=== PATIENT | female | born 1935 | race Caucasian/White ===

== ENCOUNTER → 2016-04-06 | Day surgery (SDC) | payer OTHER, MEDICARE ==
--- NOTE | 2016-04-09 10:21 | OP ---
DATE OF OPERATION: 04/06/2016 PREOPERATIVE DIAGNOSIS: Right breast mass 8 o'clock 2 cm from the nipple. POSTOPERATIVE DIAGNOSIS: Right breast mass 8 o'clock 2 cm from the nipple. PROCEDURE: Right ultrasound-guided core biopsy with clip placement. ANESTHESIA: Local. ATTENDING SURGEON: Janice Lockwood MD ESTIMATED BLOOD LOSS: Minimal. COMPLICATIONS: None. DESCRIPTION OF PROCEDURE: The patient was made aware of the risks and benefits of the procedure. She was placed in a supine position. Under sterile conditions with 1% lidocaine for local anesthesia, a small dian was made in the skin. Using a 10 gauge via lateral approach under ultrasound guidance, several cores were obtained and submitted to Pathology. Likewise, under ultrasound guidance, a U-shaped clip was placed into the biopsy region. Well tolerated by patient. Sterile dressing was applied. We will contact the patient with the results. JANICE COOL M.D. [id number] MTDD
--- NOTE | 2016-04-09 15:22 | PATH ---
Surgical Pathology Report Patient Name: BRUNO MARC [facility]. Rec. #: [id number] /Age/Gender: 1935 (Age: 81) / F Account: [id number] Location: [facility] Taken: 04/06/2016 Received: 04/06/2016 Reported: 04/09/2016 Physicians: Janice Cervantes M.D. Specimen(s) Received RIGHT BREAST 8N2 CORE BIOPSY Clinical History Nonpalpable lesion, suspicious Final Diagnosis BREAST, RIGHT, 8:00, 2 CM FN, CORE BIOPSY: BENIGN BREAST TISSUE SHOWING FIBROADENOMATOID CHANGE AND STROMAL FIBROSIS. Electronically Signed Diana Lemus M.D. Gross Description Received in formalin, labeled "right breast 8:00, 2 cmfn," is a 1.0 x 0.5 x 0.2 cm aggregate of gusman fragments of fibroadipose tissue admixed with blood clot. The formalin is filtered and the specimen is entirely submitted in one cassette. Time to formalin fixation: Less than one minute Total formalin fixation time: Approximately 8 hours. /04/06/2016 [facility]04/06/2016
== END | disposition home or self-care (01) ==
LOC: FRADUS-SUR 13:10
PROVIDERS: ATTEND Surgery Surgical Oncology
PROC: 0HBT3ZX Excision of Right Breast, Percutaneous Approach, Diagnostic (ICD-10-PCS; principal; 2016-04-06)
DX: N63 Unspecified lump in breast (principal); N60.31 Fibrosclerosis of right breast
CPT/HCPCS: 19083; 87899; 88305-TC; A4648